=== PATIENT | female | born 2000 | race Caucasian/White ===

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

== ENCOUNTER 2022-05-15 12:03 | Emergency (ER) | payer BC, MEDICAID, SELFPAY ==
[2022-05-15 12:13] VITALS: BP 137/92; PULSE 64; RESP 12; TEMP 36.3; O2SAT 100
--- NOTE | 2022-05-15 12:28 | ED.FEMALEGU ---
HPI - Female Genitourinary General Chief complaint: Vaginal Bleeding Stated complaint: Menstrual Pain Time Seen by Provider: 05/15/22 12:29 Source: patient, RN notes reviewed and old records reviewed Mode of arrival: ambulatory Limitations: no limitations History of Present Illness HPI Narrative: 22 year old female with complaints of heavy menstrual bleeding with clots, extremely painful menstrual periods which has been routine for her for some time. Patient reports that this month has been especially bad with pain, presently is on day 2 of her menses which she states are routinely 28-30 days in between cycles. Patient reports that she has been taking Advil,Tylenol, Aleve for her pain which is not helping much, is using the heating pad at times, for her pain also. Patient reports that she usually has to change her pad and tampon about every 3 hours the 1st to up to part of 3rd day of her menses. Patient is sexually active and is not on any control. MD elicited complaint: vaginal bleeding and other (menorrhagia) Onset (ago): day(s) (menses started 05/14/2022) Location of symptoms: pelvis and low back Severity: severe Severity scale (1-10): 9 Quality of pain: cramping Vaginal bleeding: heavy and clots Sexual activity: Yes Related Data Allergies Allergy/AdvReac Type Severity Reaction Status Date / Time No Known Allergies Allergy Verified 05/15/22 12:19 Review of Systems Review of Systems: CONSTITUTIONAL: Denies fever, chills, or sweats. EYES: Denies visual changes, redness, or discharge. ENT: Denies rhinorrhea, congestion, sore throat, or otalgia. CARDIOVASCULAR: Denies chest pain, palpitations, or edema. RESPIRATORY: Denies cough or dyspnea. GASTROINTESTINAL: reports lower abdominal cramping, nausea, no vomiting, or diarrhea. GENITOURINARY: Denies dysuria or hematuria. SKIN: Denies rash or itching. MUSCULOSKELETAL: Reports lower back pain, no joint pain, or myalgia. NEUROLOGIC: Denies headache, numbness, or weakness. PSYCHIATRIC: Denies anxiety or depression, patient is tearful and anxious. All systems reviewed & are unremarkable except as noted in HPI and below PMFSH Past Medical History Medical History (Updated 05/15/22 @ 14:06 by Alla Munson NP) Otitis media Scoliosis Surgical History Surgical History (Updated 05/15/22 @ 13:36 by Alla Munson NP) Hx of tonsillectomy Hx of tympanostomy tubes Social History Social History (Updated 05/15/22 @ 13:35 by Alla Munson NP) Smoking status: Current every day smoker Tobacco type: e-cigarettes/vaping Alcohol intake: never Substance use type: does not use Occupation/Education: student Gender identity (if verbalized by the patient): Female Comments At time of signature, agree with nursing past medical, surgical, social and family history. There is no relevant family history pertinent to the presenting complaint Exam Narrative: GENERAL: Well-appearing, well-nourished, and in no acute distress.anxious HEAD: Normocephalic, atraumatic. EYES: PERRLA and EOMI. ENT: Nares clear, no rhinorrhea or epistaxis. Mucous membranes moist.TM's normal with good light reflex, throat pink with no tonsils present. NECK: Supple.no lymphadenopathy CHEST: Clear to auscultation. No respiratory distress.SAO2 100% on room air HEART: Regular rate and rhythm. No murmur heard. Normal peripheral pulses. ABDOMEN: Soft, tender across lower abdomen, no McBurney point tenderness or CVA tenderness, nondistended, normal active bowel sounds.crampy type of pain reported EXTREMITIES: Normal range of motion. No edema. SKIN: Warm, dry, no rash. NEURO: No focal deficits. Alert and oriented x3. Course Course Emergency Course: Patient is aware of diagnosis, understands and agrees to treatment plan.? Anticipatory guidance given.? Patient agrees to follow-up as directed and is aware of reasons to seek care at the emergency department. Portions of this record may have been created
== END 2022-05-15 13:20 | disposition home or self-care (01) ==
PROVIDERS: Emergency Provider Registered Nurse
DX: N94.6 Dysmenorrhea, unspecified (principal); N92.0 Excessive and frequent menstruation with regular cycle; F17.290 Nicotine dependence, other tobacco product, uncomplicated; M41.9 Scoliosis, unspecified
CPT/HCPCS: 81003; 81025; 99213; G0463

== ENCOUNTER 2022-11-02 10:15 | Emergency (ER) | payer OTHER, BC, MEDICAID, SELFPAY ==
--- NOTE | ~2022-11-02 | XR_ITS ---
EXAMINATION: XR wrist RT min 3V INDICATION: Right wrist pain TECHNIQUE: Four views of the right wrist are obtained. COMPARISON: None available FINDINGS: Bone alignment is normal. There is no fracture. The soft tissues are unremarkable. There ap pears to be fusion of the capitate and trapezoid. IMPRESSION: 1. No acute osseous abnormality. Reviewed, dictated and finalized at location A.
[2022-11-02 10:28] VITALS: BP 131/81; PULSE 77; RESP 16; TEMP 37.1; O2SAT 100
--- NOTE | 2022-11-02 11:23 | ED.GENADULT ---
HPI - General Adult General Chief complaint: Extremity Injury, Upper Stated complaint: Right Wrist Pain Time Seen by Provider: 11/02/22 11:24 Source: patient, RN notes reviewed and old records reviewed Mode of arrival: ambulatory Limitations: no limitations History of Present Illness HPI narrative: 22 year old female presents to [facility] care with complaints of pain to her right wrist for some time with no known injury which has progressively increased. Patient reports that she is right hand dominant and she cleans for a living and lately pain is shooting up her arm and her fingers feel tight and sometimes tingling. Patient has strong right radial pulse, nail beds have brisk capillary refill.Patient reports that she has taken some Tylenol and Ibuprofen for her discomfort. MD complaint: right wrist pain Onset (ago): week(s) Location: right and upper extremity (wrist) Severity scale (1-10): 5 Quality: aching Treatments prior to arrival: NSAID and other (Tylenol) Related Data Home Medications Medication Instructions Recorded Confirmed No Home Medications 11/02/22 11/02/22 Allergies Allergy/AdvReac Type Severity Reaction Status Date / Time No Known Allergies Allergy Verified 11/02/22 10:18 Review of Systems Review of Systems: CONSTITUTIONAL: Denies fever, chills, or sweats. EYES: Denies visual changes, redness, or discharge. ENT: Denies rhinorrhea, congestion, sore throat, or otalgia. CARDIOVASCULAR: Denies chest pain, palpitations, or edema. RESPIRATORY: Denies cough or dyspnea. GASTROINTESTINAL: Denies abdominal pain, nausea, vomiting, or diarrhea. GENITOURINARY: Denies dysuria or hematuria. SKIN: Denies rash or itching. MUSCULOSKELETAL: Denies back pain, positive for right wrist pain, or myalgia. NEUROLOGIC: Denies headache, numbness, or weakness. PSYCHIATRIC: Denies anxiety or depression. All systems reviewed & are unremarkable except as noted in HPI and below PMFSH Past Medical History Medical History (Updated 11/03/22 @ 00:00 by Sai Daradha) Otitis media Scoliosis Surgical History Surgical History (Updated 05/15/22 @ 13:36 by Alla Munson NP) Hx of tonsillectomy Hx of tympanostomy tubes Social History Social History (Updated 05/15/22 @ 13:35 by Alla Munson NP) Smoking status: Current every day smoker Tobacco type: e-cigarettes/vaping Alcohol intake: never Substance use type: does not use Occupation/Education: student Gender identity (if verbalized by the patient): Female Comments At time of signature, agree with nursing past medical, surgical, social and family history. There is no relevant family history pertinent to the presenting complaint Exam Narrative: GENERAL: Well-appearing, well-nourished, and in no acute distress. HEAD: Normocephalic, atraumatic. EYES: PERRLA and EOMI. ENT: Nares clear, no rhinorrhea or epistaxis. Mucous membranes moist.TM's normal with good light reflex. throat pink with no lesions or swelling NECK: Supple. no lymphadenopathy CHEST: Clear to auscultation. No respiratory distress. HEART: Regular rate and rhythm. No murmur heard. Normal peripheral pulses. ABDOMEN: Soft, nontender, nondistended, normal active bowel sounds. EXTREMITIES: Normal range of motion. No edema noted with full ROM of right wrist with pain to wrist which radiates up her arm and tightness to her fingers in the morning with some tingling at times. Patient has strong right radial pulse, finger nails of right hand rm briskly. SKIN: Warm, dry, no rash. NEURO: No focal deficits. Alert and oriented x3. Course Course Emergency Course: Patient is aware of diagnosis, understands and agrees to treatment plan.? Anticipatory guidance given.? Patient agrees to follow-up as directed and is aware of reasons to seek care at the emergency department. Portions of this record may have been created with voice recognition software Level of Care: Express Care Visit Vital S
== END 2022-11-02 11:55 | disposition home or self-care (01) ==
PROVIDERS: Emergency Provider Registered Nurse
DX: M25.531 Pain in right wrist (principal); F17.290 Nicotine dependence, other tobacco product, uncomplicated; M41.9 Scoliosis, unspecified
CPT/HCPCS: 73110; 99213; G0463